=== PATIENT | female | born 1950 | race Caucasian/White ===

== ENCOUNTER 2017-09-05 11:24 | Inpatient (IN) ==
[2017-09-05] MEDS ORDERED: ONDANSETRON 4 MG/2 ML VIAL IV PRN (12:20)
[2017-09-05] MEDS ORDERED: ACETAMINOPHEN 325 MG TABLET PO PRN (12:20)
[2017-09-05] MEDS ORDERED: MORPHINE 4 MG/1 ML VIAL IV PRN (12:20)
[2017-09-05 12:39] LABS: Basophils % 0.3 % (0.0-0.8); Hematocrit 32.8 VOL% (35.7-47.0); Hemoglobin 10.9 GM/DL (12.0-16.0); Immature Granulocytes % 0.6 %; Immature Granulocytes Absolute 0.02 #; Mean Corpuscular HGB Conc 33.2 GM/DL (32-36); Mean Corpuscular Hemoglobin 28 PG (27-34); Mean Corpuscular Volume 85.2 FL (87-102); Monocytes # 0.5 10*3/uL (0.11-0.8); Monocytes % 15.6 % (1.7-12.7); NRBC # 0.05 10*3/uL; Neutrophils # 0.7 10*3/uL (1.4-7.4); Neutrophils % 22.5 % (38.7-73.9); Red Blood Count 3.85 MC/CUMM (3.8-5.5); Red Cell Distribution Width 13.8 % (9.3-17.3); White Blood Count 3.3 T/CUMM (4-12)
[2017-09-05 12:49] LABS: Platelet Count 1 T/CUMM (130-400)
[2017-09-05 12:56] LABS: Albumin 3.4 G/DL (3.4-5.0); Bilirubin,Direct 0.33 MG/DL (0.0-0.20); Bilirubin,Indirect 0.5 MG/DL (0.0-1.0); Bilirubin,Total 0.8 MG/DL (0.2-1.0); Calcium 8.5 MG/DL (8.5-10.1); Osmolality,Calculated 276.8 MOS/KG (273-304); Potassium 4.1 MMOL/L (3.5-5.1); Total Protein 6.7 G/DL (6.4-8.3)
[2017-09-05 13:59] LABS: Atypical Lymphocytes Moderate; Lymphocytes 69 % (20-55); Nucleated Red Blood Cells 1 (0-5); Platelet Estimate Decreased; Segmented Neutrophils 28 % (50-85); Total Cells Counted 100
[2017-09-05] MEDS: SODIUM CHLORIDE 0.9% 1,000 ML IV SCH (14:19)
[2017-09-05] MEDS: PANTOPRAZOLE 40 MG TABLET PO SCH (14:19)
[2017-09-05] MEDS ORDERED: SODIUM CHLORIDE 0.9% 1,000 ML IV PRN ×2 (14:20→14:39)
[2017-09-05] MEDS ORDERED: methylPREDNISolone SOD SUC 125 MG/2 ML VIAL IV ONE (14:21)
[2017-09-05 15:05] LABS: % Iron Saturation 48.3 % (18-50); Ferritin 451.8 ng/ml (8-252)
[2017-09-05 15:18] LABS: Immuno Free Light Chain Kappa 2.22 MG/DL (0.33-1.94); Immuno Free Light Chain Lambda 1.97 MG/DL (0.57-2.63); Immuno Free Light Chain Ratio 1.13 MG/DL (0.26-1.65)
[2017-09-05 15:42] LABS: Folate 19.7 NG/ML (5.4-24.0)
[2017-09-06] MEDS: SODIUM CHLORIDE 0.9% 1,000 ML IV SCH ×2 (01:13→17:05)
[2017-09-06 04:38] LABS: Hematocrit 24.1 VOL% (35.7-47.0); Immature Granulocytes % 0.6 %; Immature Granulocytes Absolute 0.01 #; Lymphocytes % 57.8 % (21.3-54.2); Mean Corpuscular HGB Conc 33.2 GM/DL (32-36); Mean Corpuscular Hemoglobin 28 PG (27-34); Mean Corpuscular Volume 84.9 FL (87-102); Mean Platelet Volume 10.3 FL (9.6-12.0); Monocytes # 0.1 10*3/uL (0.11-0.8); Neutrophils # 0.6 10*3/uL (1.4-7.4); Neutrophils % 35.6 % (38.7-73.9); Red Blood Count 2.84 MC/CUMM (3.8-5.5); Red Cell Distribution Width 13.4 % (9.3-17.3); White Blood Count 1.7 T/CUMM (4-12)
[2017-09-06 04:45] LABS: Platelet Count 37 T/CUMM (130-400)
[2017-09-06 04:52] LABS: PT Patient Result 10.5 SECS
[2017-09-06 05:09] LABS: Band Neutrophils 4 % (0-10); Nucleated Red Blood Cells 1 (0-5)
[2017-09-06 05:10] LABS: Lymphocytes 57 % (20-55); Segmented Neutrophils 33 % (50-85); Total Cells Counted 100
[2017-09-06 05:11] LABS: Atypical Lymphocytes Few; Giant Platelets Few; Hypochromasia 1+; Ovalocytes Slight; Platelet Estimate Decreased
[2017-09-06 05:19] LABS: Albumin 2.8 G/DL (3.4-5.0); Bilirubin,Total 1.3 MG/DL (0.2-1.0); Calcium 7.8 MG/DL (8.5-10.1); Osmolality,Calculated 283.5 MOS/KG (273-304); Potassium 4.1 MMOL/L (3.5-5.1); Total Protein 5.7 G/DL (6.4-8.3)
[2017-09-06] MEDS ORDERED: SODIUM CHLORIDE 0.9% 1,000 ML IV PRN (06:16)
[2017-09-06] MEDS ORDERED: HEPARIN 5,000 UNIT/1 ML VIAL ONE (07:29)
[2017-09-06 08:24] LABS: Total Protein (Chem) 6.6 G/DL (6.4-8.3)
[2017-09-06 09:49] LABS: Albumin (SPE) 3.8 G/DL (3.2-5.3); Albumin (SPE) Rel % 57.9 %; Alpha 1 (SPE) 0.3 G/DL (0.1-0.4); Alpha 1 (SPE) Rel % 5.2 %; Alpha 2 (SPE) 0.8 G/DL (0.4-1.0); Alpha 2 (SPE) Rel % 12.2 %; Beta (SPE) 0.8 G/DL (0.5-1.1); Beta (SPE) Rel % 11.9 %; Gamma (SPE) 0.9 G/DL (0.7-1.7); Gamma (SPE) Rel % 12.8 %
[2017-09-06] MEDS: PANTOPRAZOLE 40 MG TABLET PO SCH (10:41)
[2017-09-06] MEDS ORDERED: SULFAMETHOX/TRIMETHOPRIM 800-160 MG TABLET PO SCH (14:30)
== END 2017-09-06 18:10 | disposition home or self-care (01) | DRG 835 ==
LOC: SUATTDRO 11:26 → N.4E 11:37
PROVIDERS: ADMIT Internal Medicine; ATTEND Internal Medicine